=== PATIENT | male | born 1935 | race Caucasian/White ===

== ENCOUNTER 2016-09-03 17:39 | Inpatient (IN) | payer OTHER ==
[~2016-09-03] VITALS: Ht 171.4 cm; Wt 103.6 kg
[2016-09-03] MEDS ORDERED: DUONEB INH ONE (18:39)
[2016-09-03] MEDS ORDERED: CEFTRIAXONE 1 GM VIAL ONE (19:23)
[2016-09-03] MEDS ORDERED: AZITHROMYCIN 500 MG VIAL IV ONE (19:23)
[2016-09-03] MEDS ORDERED: Furosemide 40 MG/4 ML VIAL ONE (19:23)
[2016-09-03] MEDS ORDERED: NITROGLYCERIN 2% OINT 1 INCH PKT TOPICAL ONE (19:23)
[2016-09-03] MEDS ORDERED: SODIUM CHLORIDE 0.9% 100 ML IV ONE (19:24)
[2016-09-03] MEDS ORDERED: SODIUM CHLORIDE 0.9% 250 ML IV ONE (19:24)
[2016-09-03] MEDS ORDERED: ASPIRIN 81 MG CHEW TAB ONE (19:44)
[2016-09-03] MEDS ORDERED: ONDANSETRON 4 MG VIAL IV PRN (19:50)
[2016-09-03] MEDS ORDERED: ACETAMINOPHEN 325 MG TAB PO PRN (19:50)
[2016-09-03] MEDS ORDERED: DOCUSATE SOD 100 MG CAP PO PRN (19:50)
[2016-09-03] MEDS ORDERED: SALINE FLUSH 10 ML FLUSH PRN (19:50)
[2016-09-03] MEDS ORDERED: NITROGLYCERIN SL 0.4 MG TAB SL SCH (19:50)
[2016-09-03] MEDS ORDERED: TRAZODONE 50 MG TAB PO SCH (19:50)
[2016-09-03] MEDS ORDERED: DEXTROSE 50% SYRINGE 50 ML IV PRN (19:50)
[2016-09-03] MEDS ORDERED: GLUCAGON 1 MG VIAL IM PRN (19:50)
[2016-09-03] MEDS: METOLAZONE 5 MG TAB PO SCH (19:50)
[2016-09-03 21:00] VITALS: BP_SYST 128; RESP 24; TEMP 98; Ht 171.4 cm; Wt 103.6 kg
[2016-09-03] MEDS: SALINE FLUSH 10 ML FLUSH SCH (21:28)
[2016-09-03] MEDS: TRAZODONE 50 MG TAB PO SCH (22:33)
[2016-09-03] MEDS: DUONEB INH SCH (22:52)
[2016-09-03 22:55] VITALS: RESP 20
[2016-09-03 23:11] VITALS: BP_SYST 127; RESP 22; TEMP 97.7
[2016-09-04 04:16] VITALS: BP_SYST 125; RESP 26; TEMP 97.7
[2016-09-04] MEDS: SODIUM CHLORIDE 0.9% FLUSH BAG 500 ML IV SCH (05:25)
[2016-09-04] MEDS: LORAZEPAM 0.5 MG TAB PO PRN ×2 (05:30→20:58)
[2016-09-04] MEDS: DUONEB INH SCH ×5 (07:16→23:45)
[2016-09-04 07:40] VITALS: BP_SYST 146; RESP 26; TEMP 97.4
[2016-09-04] MEDS: TRAZODONE 50 MG TAB PO SCH ×2 (08:30→21:10)
[2016-09-04] MEDS: METOLAZONE 5 MG TAB PO SCH (08:35)
[2016-09-04] MEDS: SALINE FLUSH 10 ML FLUSH SCH ×2 (08:36→21:09)
[2016-09-04] MEDS: Furosemide 40 MG/4 ML VIAL IV SCH ×2 (08:36→17:13)
[2016-09-04] MEDS: CEFTRIAXONE 1 GM in SODIUM CHLORIDE 0.9% 50 ML IV SCH (08:37)
[2016-09-04] MEDS ORDERED: ENOXAPARIN 30 MG/0.3 ML SYR SUBQ SCH ×2 (09:00→19:40)
[2016-09-04] MEDS: LEVOTHYROXINE 0.05 MG TAB PO SCH (11:31)
[2016-09-04] MEDS: ASPIRIN EC 325 MG TAB PO SCH (11:31)
[2016-09-04] MEDS: GABAPENTIN 300 MG CAP PO SCH ×2 (11:32→21:11)
[2016-09-04] MEDS: CILOSTAZOL 100 MG TAB PO SCH ×2 (11:32→14:00)
[2016-09-04] MEDS: ATENOLOL 50 MG TAB PO SCH (11:32)
[2016-09-04 11:49] VITALS: BP_SYST 139; RESP 26; TEMP 98.3
[2016-09-04 15:26] VITALS: BP_SYST 149; RESP 26; TEMP 98.5
[2016-09-04] MEDS: ENOXAPARIN 30 MG/0.3 ML SYR SUBQ SCH (20:00)
[2016-09-04 20:04] VITALS: BP_SYST 131; RESP 18; TEMP 99.5
[2016-09-04] MEDS: DOXAZOSIN 4 MG TAB PO SCH (21:10)
[2016-09-04] MEDS: Atorvastatin 20 MG TAB PO SCH (21:10)
[2016-09-05] VITALS (7 sets, daily range): BP systolic 90–153; RESP 18; TEMP 97.9–98.7
[2016-09-05] MEDS: SODIUM CHLORIDE 0.9% FLUSH BAG 500 ML IV SCH (06:37)
[2016-09-05] MEDS: LEVOTHYROXINE 0.05 MG TAB PO SCH (06:37)
[2016-09-05] MEDS: DUONEB INH SCH ×5 (07:13→23:55)
[2016-09-05] MEDS: SALINE FLUSH 10 ML FLUSH SCH ×2 (07:45→19:49)
[2016-09-05] MEDS: METOLAZONE 5 MG TAB PO SCH (09:44)
[2016-09-05] MEDS: Furosemide 40 MG/4 ML VIAL IV SCH ×2 (09:44→17:19)
[2016-09-05] MEDS: ATENOLOL 50 MG TAB PO SCH (09:44)
[2016-09-05] MEDS: CEFTRIAXONE 1 GM in SODIUM CHLORIDE 0.9% 50 ML IV SCH (09:44)
[2016-09-05] MEDS: CILOSTAZOL 100 MG TAB PO SCH ×2 (09:45→14:37)
[2016-09-05] MEDS: GABAPENTIN 300 MG CAP PO SCH ×2 (09:45→19:44)
[2016-09-05] MEDS: ASPIRIN EC 325 MG TAB PO SCH (09:45)
[2016-09-05] MEDS: DOXAZOSIN 4 MG TAB PO SCH (19:44)
[2016-09-05] MEDS: ENOXAPARIN 30 MG/0.3 ML SYR SUBQ SCH (19:44)
[2016-09-05] MEDS: Atorvastatin 20 MG TAB PO SCH (19:48)
[2016-09-05] MEDS: TRAZODONE 50 MG TAB PO SCH (19:48)
[2016-09-06 03:30] VITALS: BP_SYST 113; RESP 18; TEMP 97.9
[2016-09-06] MEDS: DUONEB INH SCH ×5 (06:15→23:56)
[2016-09-06] MEDS: LEVOTHYROXINE 0.05 MG TAB PO SCH (06:18)
[2016-09-06] MEDS: SODIUM CHLORIDE 0.9% FLUSH BAG 500 ML IV SCH (06:18)
[2016-09-06 07:51] VITALS: BP_SYST 153; RESP 16; TEMP 97.5
[2016-09-06] MEDS ORDERED: Furosemide 40 MG/4 ML VIAL IV SCH (09:00)
[2016-09-06] MEDS: SALINE FLUSH 10 ML FLUSH SCH ×2 (09:39→20:30)
[2016-09-06] MEDS: CILOSTAZOL 100 MG TAB PO SCH ×2 (09:40→13:26)
[2016-09-06] MEDS: CEFTRIAXONE 1 GM in SODIUM CHLORIDE 0.9% 50 ML IV SCH (09:40)
[2016-09-06] MEDS: METOLAZONE 5 MG TAB PO SCH (09:40)
[2016-09-06] MEDS: ASPIRIN EC 325 MG TAB PO SCH (09:41)
[2016-09-06] MEDS: ATENOLOL 50 MG TAB PO SCH (09:41)
[2016-09-06] MEDS: GABAPENTIN 300 MG CAP PO SCH ×2 (09:41→20:30)
[2016-09-06] MEDS ORDERED: LEXISCAN 0.4 MG/5 ML SYRINGE IV ONE (11:28)
[2016-09-06 15:43] VITALS: BP_SYST 121; RESP 16; TEMP 98.1
[2016-09-06] MEDS ORDERED: SODIUM CHLORIDE 0.9% 500 ML IV ONE (17:40)
[2016-09-06 19:45] VITALS: BP_SYST 90; RESP 18; TEMP 97.8
[2016-09-06] MEDS: Atorvastatin 20 MG TAB PO SCH (20:30)
[2016-09-06] MEDS: DOXAZOSIN 4 MG TAB PO SCH (20:30)
[2016-09-06] MEDS: TRAZODONE 50 MG TAB PO SCH (20:30)
[2016-09-06] MEDS: ISOSORBIDE MONO 30 MG TAB PO SCH (20:30)
[2016-09-06] MEDS: Carvedilol 3.125 MG TAB PO SCH (20:30)
[2016-09-06] MEDS: ENOXAPARIN 30 MG/0.3 ML SYR SUBQ SCH (20:32)
[2016-09-06 23:38] VITALS: BP_SYST 132; RESP 19; TEMP 98.2
[2016-09-07 04:16] VITALS: BP_SYST 124; RESP 18; TEMP 98.5
[2016-09-07 04:17] VITALS: RESP 18
[2016-09-07] MEDS: SODIUM CHLORIDE 0.9% FLUSH BAG 500 ML IV SCH (05:12)
[2016-09-07] MEDS: LEVOTHYROXINE 0.05 MG TAB PO SCH (06:17)
[2016-09-07] MEDS: DUONEB INH SCH ×3 (06:47→14:14)
[2016-09-07 08:14] VITALS: BP_SYST 145; RESP 18; TEMP 97.3
[2016-09-07] MEDS: ISOSORBIDE MONO 30 MG TAB PO SCH (09:22)
[2016-09-07] MEDS: CILOSTAZOL 100 MG TAB PO SCH (09:22)
[2016-09-07] MEDS: GABAPENTIN 300 MG CAP PO SCH (09:23)
[2016-09-07] MEDS: ASPIRIN EC 325 MG TAB PO SCH (09:23)
[2016-09-07] MEDS: Carvedilol 3.125 MG TAB PO SCH (09:23)
[2016-09-07] MEDS: CEFTRIAXONE 1 GM in SODIUM CHLORIDE 0.9% 50 ML IV SCH (09:29)
[2016-09-07] MEDS: SALINE FLUSH 10 ML FLUSH SCH (09:29)
[2016-09-07 12:21] VITALS: BP_SYST 150; RESP 18; TEMP 97.4
[2016-09-07 14:38] VITALS: BP_SYST 150; RESP 18; TEMP 97.4
== END 2016-09-07 15:35 | disposition home or self-care (01) | DRG 291 ==
LOC: ENRESERV → ENRESERVTM → ENRESERVDT → ER 17:39 → EMR 19:48 → PCU2 20:52
PROVIDERS: ADMIT Internal Medicine; ATTEND Internal Medicine
DX: I13.0 Hypertensive heart and chronic kidney disease with heart failure and stage 1 through stage 4 chronic kidney disease, or unspecified chronic kidney disease (principal); I50.21 Acute systolic (congestive) heart failure; N17.9 Acute kidney failure, unspecified; J18.9 Pneumonia, unspecified organism; E11.22 Type 2 diabetes mellitus with diabetic chronic kidney disease; Z95.1 Presence of aortocoronary bypass graft; N18.3 Chronic kidney disease, stage 3 (moderate); R09.02 Hypoxemia; Z95.828 Presence of other vascular implants and grafts; Z85.46 Personal history of malignant neoplasm of prostate; F17.220 Nicotine dependence, chewing tobacco, uncomplicated; Z79.82 Long term (current) use of aspirin; Z79.4 Long term (current) use of insulin
CPT/HCPCS: 36415; 36600; 71010; 71020; 76770; 78452; 80048; 80053; 80061; 80162; 82550; 82553; 82803; 82947; 83036; 83605; 83735; 83880; 84145; 84153; 84439; 84443; 84484; 85025; 87040; 93005; 93017; 93306; 94640; 94799; 96365; 96375